=== PATIENT | male | born 2005 | race Caucasian/White ===

== ENCOUNTER 2025-09-08 16:22 | Emergency (ER) | payer MEDICAID ==
[~2025-09-08] VITALS: Ht 172.7 cm; Wt 130.1 kg
[2025-09-08] MEDS ORDERED: RISP1SS PO (16:34)
[2025-09-08 20:22] LABS: BASO # 0.0 10^3/uL (0.0-0.2); BASO % 0.5 % (0.0-1.0); EOS # 0.3 10^3/uL (0.0-0.5); EOS % 3.7 % (0.0-3.0); LYMPH # 2.6 10^3/uL (1.5-5.0); LYMPH % 30.3 % (24.0-44.0); MONO # 0.8 10^3/uL (0.0-0.8); MONO % 9.7 % (2.0-8.0); NEUTROPHILS # 4.7 10^3/uL (1.5-8.5); NEUTROPHILS % 55.4 % (36.0-66.0); PLATELET COUNT, AUTOMATED 277 10^3/uL (150-450)
[2025-09-08] MEDS ORDERED: ISOVUE-370 76% 100 ML VIAL As Ordered ONE (20:32)
[2025-09-08 20:44] LABS: CK-MB VALUE MASS < 1.0 NG/ML (<3.6)
[2025-09-08 20:45] LABS: ALT/SGPT 30 U/L (7.0-40); AST/SGOT 18 U/L (<34); INR 0.9
[2025-09-08 20:50] LABS: CPK CREATINE PHOSPHOKINASE 90 U/L (46-171)
[2025-09-08] MEDS: ACETAMINOPHEN 500 MG TAB PO ONE (21:03)
[2025-09-08 21:30] VITALS: BP 109/66
[2025-09-08 21:36] VITALS: O2SAT 97
[2025-09-08 21:54] VITALS: TEMP 97.6
== END 2025-09-08 21:58 | disposition home or self-care (01) ==
LOC: M ED 16:22
DX: R07.89 Other chest pain (principal); R00.0 Tachycardia, unspecified; Z88.1 Allergy status to other antibiotic agents; Z88.8 Allergy status to other drugs, medicaments and biological substances; Z91.030 Bee allergy status; Z79.899 Other long term (current) drug therapy
CPT/HCPCS: 36415; 71275; 80047; 80076; 82550; 82553; 83690; 84484; 85025; 85610; 85730; 93005; 99284; Q9967

== ENCOUNTER 2025-09-17 19:47 | Inpatient (IN) | payer MEDICAID ==
[~2025-09-17] VITALS: Ht 172.7 cm; Wt 131.6 kg
[~2025-09-17 19:47] MED LIST: RISP1SS PO
[2025-09-17] MEDS ORDERED: HYDR1CAP25 PO (19:52)
[2025-09-17] MEDS ORDERED: BUPR150T12 PO (19:52)
[2025-09-17 21:14] LABS: PLATELET COUNT, AUTOMATED 307 10^3/uL (150-450)
[2025-09-17 21:25] LABS: AMPHETAMINES LEVEL URINE NEGATIVE (NEGATIVE); BARBITURATES URINE NEGATIVE (NEGATIVE); BENZODIAZEPINES URINE NEGATIVE (NEGATIVE); CANNABINOIDS URINE NEGATIVE (NEGATIVE); COCAINE METABOLITE URINE NEGATIVE (NEGATIVE); METHADONE URINE NEGATIVE (NEGATIVE); OPIATES URINE NEGATIVE (NEGATIVE); PHENCYCLIDINE URINE NEGATIVE (NEGATIVE)
[2025-09-17 21:28] LABS: ETHYL ALCOHOL (ETHANOL) < 0.003 % (0.000-0.010)
[2025-09-17 21:29] LABS: SALICYLATE LEVEL < 3.0 MG/DL (<30)
[2025-09-17 21:30] LABS: ALT/SGPT 26 U/L (7.0-40); AST/SGOT 14 U/L (<34); CALCIUM LEVEL 9.7 MG/DL (8.5-10.1); CARBON DIOXIDE LEVEL 26 MMOL/L (20-31); CHLORIDE LEVEL 104 MMOL/L (98-107); CREATININE FOR GFR 0.93 MG/DL (0.70-1.30); GLOMERULAR FILTRATION RATE > 90.0 (>60); POTASSIUM SERUM 4.6 MMOL/L (3.5-5.1); SODIUM LEVEL 141 MMOL/L (136-145)
[2025-09-17] MEDS ORDERED: HALOPERIDOL 5 MG TAB PO PRN (22:25)
[2025-09-17] MEDS ORDERED: LORazepam 1 MG TAB PO PRN (22:25)
[2025-09-17] MEDS ORDERED: MOM 30 ML SUSPENSION UDC PO PRN (22:25)
[2025-09-17] MEDS ORDERED: ACETAMINOPHEN 325 MG TAB PO PRN (22:25)
[2025-09-17] MEDS ORDERED: MAALOX 30 ML SUSP *UDC PO PRN (22:25)
[2025-09-17 23:16] VITALS: BP 138/95; TEMP 97.1; O2SAT 98
[2025-09-17] MEDS: IBUPROFEN 400 MG TAB PO PRN (23:58)
[2025-09-17] MEDS: traZODone 50 MG TAB PO PRN (23:58)
[2025-09-18 06:30] VITALS: BP 131/74; TEMP 97.8; O2SAT 98
[2025-09-18] MEDS ORDERED: PRAZ1CAP PO (09:28)
[2025-09-18] MEDS ORDERED: RISP125S SQ (09:28)
[2025-09-18] MEDS ORDERED: HYDR1CAP25 PO (09:28)
[2025-09-18] MEDS ORDERED: ASPI81TA26 PO (09:28)
[2025-09-18] MEDS ORDERED: HOME MED LIST COMPLETE! XX SCH (09:30)
[2025-09-18] MEDS: LITHIUM CARBONATE 150 MG CAP PO SCH (12:32)
[2025-09-18] MEDS: ASPIRIN 81 MG ENTERIC TABLET PO SCH (12:33)
[2025-09-18 15:53] VITALS: BP 140/85; TEMP 97; O2SAT 97
[2025-09-18] MEDS: FLUZONE VACCINE TRI PF(25-26) 0.5ML SYRINGE IM.IMMUN ONE (17:10)
[2025-09-18] MEDS: RISPERIDONE 1 MG TAB PO SCH (20:13)
[2025-09-19 06:24] VITALS: BP 108/60; TEMP 98.2; O2SAT 99
[2025-09-19 07:54] LABS: CHOLESTEROL LEVEL 161.0 MG/DL (<200); CHOLESTEROL RISK RATIO 3.87 (<5); LDL CHOLESTEROL 87.1 MG/DL (<100); NON-HDL-C 119.5 MG/DL; TRIGLYCERIDES LEVEL 162.0 MG/DL (<150)
[2025-09-19 14:41] VITALS: BP 130/80; TEMP 97.5; O2SAT 96
[2025-09-20 06:24] VITALS: BP 105/54; TEMP 98.1; O2SAT 99
[2025-09-20 15:08] VITALS: BP 136/72; TEMP 97.9; O2SAT 98
[2025-09-21 06:22] VITALS: BP 128/77; TEMP 97.3; O2SAT 99
[2025-09-21 16:24] VITALS: BP 138/88; TEMP 97.4; O2SAT 98
[2025-09-22 00:12] VITALS: BP 138/88; TEMP 97.4; O2SAT 98
[2025-09-22 06:25] VITALS: BP 113/54; TEMP 97.8; O2SAT 96
[2025-09-22 14:23] VITALS: BP 131/63; TEMP 97.3; O2SAT 98
[2025-09-22] MEDS ORDERED: RISP-105 PO (15:41)
[2025-09-22] MEDS ORDERED: TRAZ-252 PO (15:41)
[2025-09-22] MEDS ORDERED: LITH150C PO (15:41)
== END 2025-09-22 18:22 | disposition home or self-care (01) | DRG 753 ==
LOC: M ED 22:29 → M ED INP 22:30 → M PSY 23:15
PROVIDERS: ADMIT Psychiatry & Neurology Neurology; ATTEND Psychiatry & Neurology Psychiatry
DX: F31.5 Bipolar disorder, current episode depressed, severe, with psychotic features (principal); R45.851 Suicidal ideations; F43.10 Post-traumatic stress disorder, unspecified; J45.909 Unspecified asthma, uncomplicated; Z59.01 Sheltered homelessness; Z79.82 Long term (current) use of aspirin; Z79.899 Other long term (current) drug therapy; Z56.0 Unemployment, unspecified; Z88.0 Allergy status to penicillin; Z88.8 Allergy status to other drugs, medicaments and biological substances; Z91.030 Bee allergy status; Z91.51 Personal history of suicidal behavior

== ENCOUNTER 2025-09-30 20:18 | Emergency (ER) | payer MEDICAID ==
[~2025-09-30] VITALS: Ht 172.7 cm; Wt 135.4 kg
[~2025-09-30 20:18] MED LIST changes: +ASPI81TA26 PO; +BUPR150T12 PO; +HYDR1CAP25 PO; +LITH150C PO; +PRAZ1CAP PO; +RISP-105 PO; +RISP125S SQ; +TRAZ-252 PO
[2025-09-30 21:09] LABS: PLATELET COUNT, AUTOMATED 253 10^3/uL (150-450)
[2025-09-30 21:31] LABS: AMPHETAMINES LEVEL URINE NEGATIVE (NEGATIVE); BARBITURATES URINE NEGATIVE (NEGATIVE); BENZODIAZEPINES URINE NEGATIVE (NEGATIVE); CANNABINOIDS URINE NEGATIVE (NEGATIVE); COCAINE METABOLITE URINE NEGATIVE (NEGATIVE); METHADONE URINE NEGATIVE (NEGATIVE); OPIATES URINE NEGATIVE (NEGATIVE); PHENCYCLIDINE URINE NEGATIVE (NEGATIVE)
[2025-09-30 21:34] LABS: ETHYL ALCOHOL (ETHANOL) < 0.003 % (0.000-0.010)
[2025-09-30 21:35] LABS: SALICYLATE LEVEL < 3.0 MG/DL (<30)
[2025-09-30 21:37] LABS: ALT/SGPT 30 U/L (7.0-40); AST/SGOT 18 U/L (<34); CALCIUM LEVEL 8.6 MG/DL (8.5-10.1); CARBON DIOXIDE LEVEL 26 MMOL/L (20-31); CHLORIDE LEVEL 105 MMOL/L (98-107); CREATININE FOR GFR 0.93 MG/DL (0.70-1.30); GLOMERULAR FILTRATION RATE > 90.0 (>60); POTASSIUM SERUM 4.2 MMOL/L (3.5-5.1); SODIUM LEVEL 143 MMOL/L (136-145)
[2025-09-30 22:43] LABS: LITHIUM LEVEL 0.14 MMOL/L (1.0-1.20)
[2025-10-01 00:15] VITALS: BP 156/92; TEMP 97.8; O2SAT 98
== END 2025-10-01 00:19 | disposition home or self-care (01) ==
LOC: M ED 20:18
DX: F43.20 Adjustment disorder, unspecified (principal); F43.10 Post-traumatic stress disorder, unspecified; F31.9 Bipolar disorder, unspecified; F17.290 Nicotine dependence, other tobacco product, uncomplicated; Z88.0 Allergy status to penicillin; Z91.030 Bee allergy status; Z88.8 Allergy status to other drugs, medicaments and biological substances; Z79.899 Other long term (current) drug therapy; Z79.82 Long term (current) use of aspirin

== ENCOUNTER 2025-10-31 16:42 | Emergency (ER) | payer MEDICAID, OTHER ==
[~2025-10-31] VITALS: Ht 175.3 cm; Wt 139.5 kg
[2025-10-31] MEDS ORDERED: SERT50TA29 PO (17:23)
[2025-10-31] MEDS: NS (Normal Saline) 0.9% 1,000 ML IV ONE (21:10)
[2025-10-31] MEDS: ACETAMINOPHEN *IV* 1,000 MG in IV 1 EA IV ONE (21:10)
[2025-10-31 21:13] LABS: BASO # 0.0 10^3/uL (0.0-0.2); BASO % 0.4 % (0.0-1.0); EOS # 0.3 10^3/uL (0.0-0.5); EOS % 3.3 % (0.0-3.0); LYMPH # 2.4 10^3/uL (1.5-5.0); LYMPH % 26.0 % (24.0-44.0); MONO # 0.9 10^3/uL (0.0-0.8); MONO % 9.9 % (2.0-8.0); NEUTROPHILS # 5.6 10^3/uL (1.5-8.5); NEUTROPHILS % 59.9 % (36.0-66.0); PLATELET COUNT, AUTOMATED 268 10^3/uL (150-450)
[2025-10-31 21:44] LABS: ALT/SGPT 26 U/L (7.0-40); AST/SGOT 16 U/L (<34); CALCIUM LEVEL 9.4 MG/DL (8.5-10.1); CARBON DIOXIDE LEVEL 26 MMOL/L (20-31); CHLORIDE LEVEL 106 MMOL/L (98-107); CREATININE FOR GFR 0.78 MG/DL (0.70-1.30); GLOMERULAR FILTRATION RATE > 90.0 (>60); POTASSIUM SERUM 4.3 MMOL/L (3.5-5.1); SODIUM LEVEL 141 MMOL/L (136-145)
[2025-10-31] MEDS ORDERED: ISOVUE-370 76% 100 ML VIAL As Ordered ONE (22:41)
[2025-11-01 01:16] VITALS: BP 148/90; TEMP 97.1; O2SAT 95
[2025-11-01] MEDS: PREPARATION H OINTMENT (HEMORRHOID) PR PRN (01:44)
[2025-11-06] MEDS ORDERED: TRAZ1TAB10 PO (12:20)
[2025-11-06] MEDS ORDERED: RISP-105 PO (12:20)
[2025-11-06] MEDS ORDERED: HYDR1CAP25 PO (12:20)
[2025-11-06] MEDS ORDERED: VENTAER INH (12:21)
== END 2025-11-01 01:47 | disposition home or self-care (01) ==
LOC: M ED 16:42
DX: K64.8 Other hemorrhoids (principal); Z88.1 Allergy status to other antibiotic agents; Z88.8 Allergy status to other drugs, medicaments and biological substances; Z91.030 Bee allergy status; Z79.1 Long term (current) use of non-steroidal anti-inflammatories (NSAID); Z79.899 Other long term (current) drug therapy
CPT/HCPCS: 74174; 80048; 80076; 85025; 87507; 96365; 96366; 99284; J0134; Q9967